=== PATIENT | male | born 1965 | race Two or more races ===

== ENCOUNTER 2018-08-14 17:52 | Emergency (ER) | payer BC ==
[~2018-08-14] VITALS: Ht 175.3 cm; Wt 59.0 kg
[2018-08-14] MEDS ORDERED: SYNTHROID88 MCG (18:52)
== END 2018-08-14 20:37 | disposition home or self-care (01) ==
LOC: ER 17:52 → EDBD 17:52 → ER 18:03
DX: M54.89 Other dorsalgia (principal); T21.1 Burn of first degree of trunk; T79.8XXS Other early complications of trauma, sequela; X08.8XXS Exposure to other specified smoke, fire and flames, sequela